=== PATIENT | male | born 1975 | race Caucasian/White ===

== ENCOUNTER → 2024-01-26 15:03 | Outpatient (REF) | payer OTHER, SELFPAY | LOC: MRI 3T 15:03 | PROVIDERS: ATTENDING PHYSICIAN Specialist; FAMILY PHYSICIAN Family Medicine | DX: R97.20 Elevated prostate specific antigen [PSA] (principal) | CPT/HCPCS: 72197; A9575 ==

== ENCOUNTER 2024-02-01 06:15 | Day surgery (SDC) | payer OTHER, SELFPAY ==
[2024-02-01 07:06] VITALS: BMI 24.2
[2024-02-01 07:07] VITALS: BP 147/87
[2024-02-01] MEDS: NORMOSOL-R 1000 IV (07:11)
[2024-02-01] MEDS: NEOMYCIN ENEMA 1 BOTTLE RECTAL (07:12)
[2024-02-01 08:15] VITALS: BP 147/87; BP 96/46
[2024-02-01 08:30] VITALS: BP 106/71
[2024-02-01 08:45] VITALS: BP 94/67
[2024-02-01 09:00] VITALS: BP 116/83
[2024-02-01 09:30] VITALS: BP 123/81
== END 2024-02-01 09:35 | disposition home or self-care (01) ==
LOC: SDS 06:15
PROVIDERS: ATTENDING PHYSICIAN Specialist
DX: N41.9 Inflammatory disease of prostate, unspecified (principal); R97.20 Elevated prostate specific antigen [PSA]
CPT/HCPCS: 55700; 76998; 88305; 88344

== ENCOUNTER → 2025-06-10 14:57 | Outpatient (REF) | payer OTHER, SELFPAY | LOC: RCS 14:57 | PROVIDERS: ATTENDING PHYSICIAN Family Medicine | DX: R93.1 Abnormal findings on diagnostic imaging of heart and coronary circulation (principal); Z82.49 Family history of ischemic heart disease and other diseases of the circulatory system | CPT/HCPCS: 93017 ==